=== PATIENT | male | born 1945 | race Caucasian/White ===

== ENCOUNTER 2021-10-16 13:00 | Emergency (ER) | payer MEDICARE, BC ==
[2021-10-16] MEDS ORDERED: HYDROcodone/Acetaminophen 5/325 mg Tablet ONE ×2 (13:27→14:12)
[2021-10-16 13:42] LABS: #Lymphocytes 1.1 thou/uL (1.20-3.40); #Monocytes 0.7 thou/uL (0.11-0.59); #Neutrophils 6.9 thou/uL (1.40-6.50); %Basophils 0.3 % (0.0-1.0); %Eosinophils 0.1 % (0.0-10.0); %Lymphocytes 12.5 % (21.0-51.0); %Monocytes 7.9 % (0.0-10.0); %Neutrophils 79.2 % (42.0-75.0); Hemoglobin 14.5 g/dL (14.0-18.0); Mean Corpuscular HGB CONC 35.1 g/dL (32.0-36.0); Mean Corpuscular Hemoglobin 32.4 pg (27.0-31.0); Mean Corpuscular Volume 92.4 fL (78.0-98.0); Mean Platelet Volume 8.5 fL (7.4-10.4); Platelet Count 178 thou/uL (130-400); RBC Distribution Width 12.2 % (11.5-14.5); Red Blood Cell (RBC) Count 4.47 mill/uL (4.70-6.10); White Blood Cell (WBC) Count 8.7 thou/uL (4.8-10.8)
[2021-10-16 13:49] LABS: Prothrombin Time 13.3 sec (12.0-14.7)
[2021-10-16] MEDS ORDERED: Lidocaine 1% w/Epinephrine 1:100K 20 ML VIAL ONE (13:50)
[2021-10-16 13:59] LABS: ALT (SGPT) 39 U/L (8-55); AST (SGOT) 38 U/L (5-34); Albumin 4.2 g/dL (3.4-4.8); Alkaline Phosphatase 93 U/L (40-110); Anion Gap 16 mmol/L (10-20); BUN (Urea Nitrogen) 13 mg/dL (8.4-25.7); Bilirubin, Total 1.4 mg/dL (0.2-1.2); Calc. Creatinine Clearance 0 mL/min (70-130); Calcium 9.5 mg/dL (7.8-10.44); Carbon Dioxide 22 mmol/L (23-31); Chloride 104 mmol/L (98-107); Globulin 3.8 g/dL (2.4-3.5); Glucose 139 mg/dL (83-110); Potassium 3.9 mmol/L (3.5-5.1); Sodium 138 mmol/L (136-145)
[2021-10-16] MEDS ORDERED: Cefepime 2 GM VIAL ONE (15:18)
[2021-10-16] MEDS ORDERED: Sodium Chloride 0.9% 100 ML ONE ×3 (15:18→16:01)
[2021-10-16 18:05] LABS: RBC Count-Automated (BF) 10659 /cu.mm; WBC/Nucleated-Auto (BF) 28894 /cu.mm
[2021-10-16 18:12] LABS: Body Fluid Source Synovial Fluid; Tube # 1
[2021-10-16 18:13] LABS: Clarity Cloudy/Turbid (Clear)
[2021-10-16 18:14] LABS: BF Color Red
[2021-10-16 18:19] LABS: BF Segmented Neutrophils 73 %; Cell Count Non Hematic 17 %; Lymphocytes 10 %
== END 2021-10-16 18:50 | disposition home or self-care (01) ==
LOC: BURERS 13:00
DX: M25.572 Pain in left ankle and joints of left foot (principal); E78.5 Hyperlipidemia, unspecified; E78.00 Pure hypercholesterolemia, unspecified; G61.0 Guillain-Barre syndrome; Z87.442 Personal history of urinary calculi; Z79.82 Long term (current) use of aspirin; Z79.899 Other long term (current) drug therapy
CPT/HCPCS: 20605; 36415; 80053; 85025; 85060; 85610; 86140; 87070; 87077; 87186; 87205; 89051; 89060; 96365; 96375; J0692; J3370; J3490